=== PATIENT | male | born 1940 | race Caucasian/White ===

== ENCOUNTER 2017-06-20 12:19 | Observation (INO) ==
--- NOTE | 2017-06-20 12:49 | Emergency Department Note ---
Fall HPI - General Chief Complaint: Fall Stated Complaint: left hip pain, fall Time Seen by Provider: 06/20/17 12:35 Source: patient, EMS Mode of arrival: ambulatory - History of Present Illness HPI Narrative: Patient was outside trimming roses in his left hip gave out when he fell with some lava rock. He has an abrasion to his right elbow and a dislocated left hip prosthesis no other injuries. - Related Data Home Medications Medication Instructions Recorded Confirmed Acetaminophen [Acetaminophen Extra 500 mg PO Q6H PRN 10/15/15 06/20/17 Strength] Gabapentin [Neurontin] 300 mg PO QIDP PRN 06/20/17 06/20/17 Previous Rx's Medication Instructions Recorded acetaminophen 120 mg-codeine 12 5 ml PO QID PRN #60 ml 12/28/16 mg/5 mL (5 mL) oral solution simvastatin 20 mg tablet 20 mg PO QPM #90 tab 02/08/17 metoprolol tartrate 25 mg tablet 12.5 mg PO BID #30 tab 02/15/17 metformin ER 500 mg 500 mg PO BID #180 tab 03/03/17 tablet,extended release 24 hr lisinopril 20 1 tab PO Q48 #45 tab 03/22/17 mg-hydrochlorothiazide 12.5 mg tablet lorazepam 1 mg tablet 1 mg PO BID PRN #90 tab 04/15/17 warfarin 5 mg tablet See Label Instructions .ROUTE 05/10/17 .COMPLEX #100 tab Accu-Chek 1 each FS ACHS strip 06/20/17 Allergies Allergy/AdvReac Type Severity Reaction Status Date / Time No Known Drug Allergies Allergy Verified 03/22/17 08:32 Review of Systems All systems ED: reviewed and negative except as stated. Fall PMH - Past Medical History [facility] Narrative: Medical History (Last Updated 04/03/17 @ 12:57 by Sukh Fuller MD) Colon adenomas (Chronic) Metabolic Syndrome X (Chronic) Acute retention of urine (Resolved) Stress incontinence (Chronic) Acquired trigger thumb (Chronic) Acquired trigger finger (Chronic) Urinary Incontinence (Chronic) Cubital tunnel syndrome on right (Resolved) Carpal tunnel syndrome, bilateral (Chronic) Stress incontinence, male (Chronic) Acute reaction to stress (Resolved 05/17/13) Malignant neoplasm of prostate (Chronic) Bilateral plantar fasciitis (Chronic 09/24/14) Osteoarthritis (Chronic) Deformity of toe (Chronic 09/24/14) Lipoma (Chronic 10/16/13) Essential hypertension (Chronic) Dyslipidemia (Chronic) Ventral hernia (Chronic) Gross hematuria (Chronic) Dysmetabolic syndrome X (Chronic) DM w/o complication type II (Chronic) Cough (Resolved 10/05/13) Bradycardia (Chronic 05/23/14) History of bladder cancer (Chronic) First degree atrioventricular block (Chronic 05/23/14) Past Surgical History (Last Reviewed 03/22/17 @ 09:20 by Sukh Fuller MD) History of carpal tunnel surgery of left wrist (Resolved) Status post carpal tunnel release (Resolved) Hx of tonsillectomy (Resolved) Hx of radical prostatectomy (Resolved) Status post bilateral knee replacements (Resolved) S/P bilateral hip replacements (Resolved) Hx of inguinal hernia repair (Resolved) Hx of hernia repair (Resolved 10/16/13) S/P bilateral foot surgery (Resolved) Hx of colonoscopy (Resolved) Status post implantation of artificial urinary sphincter (Resolved) Family History (Last Reviewed 03/22/17 @ 09:20 by Sukh Fuller MD) Mother Malignant neoplasm of breast Father Parkinson's Disease - Social History smoking status: Former smoker Physical Exam Left hip is shortened and externally rotated. Minimal tenderness around the hip joint itself. - General Limitations: no limitations General appearance: alert, in no apparent distress - Head Head exam: atraumatic, normocephalic - Eye Eye exam: Present: normal appearance - ENT ENT exam: normal exam - Neck Neck exam: Present: normal inspection - Chest Chest inspection: Present: normal inspection - Respiratory Respiratory exam: Present: normal lung sounds bilaterally - Cardiovascular Cardiovascular exam: Present: regular rate, normal rhythm, normal heart sounds - Neurological Exam Neurological exam: Present: alert - Psychiatric Psychiatric exam: Present: normal affect, normal mood - Skin Skin exam: Present: warm, dry Course Vital Signs Temperature 98.7 F 06/20/17 12:20 Pulse Rate 77 06/20/17 12:20 Respiratory Rate 18 06/20/17 12:20 Blood Pressure 174/123 06/20/17 12:20 Pulse Oximetry (%) 98 06/20/17 12:20 Temperature 97 F 06/21/17 06:14 Pulse Rate 69 06/21/17 03:10 Respiratory Rate 16 06/21/17 06:14 Blood Pressure 158/66 06/21/17 06:14 Pulse Oximetry (%) 96 06/21/17 06:14 Fall - MDM Narrative Medical decision making narrative: This patient had a 5 mm bleed in his brain which I could not locate when I looked at the film. Patient will be admitted to the hospital by the hospitalist for observation and repeat CT scan in the morning. Anibal Chacko came in and reduce the hip dislocation. - Lab Data Lab results reviewed: Yes I reviewed the patient's lab results. Result diagrams: 06/21/17 03:46 06/21/17 03:46 Lab Results 06/20/17 06/20/17 06/20/17 Range/Units 14:20 14:20 14:20 WBC 8.8 (4.5-11.0) K/mcL RBC 4.22 L (4.50-5.90) M/mcL Hgb 13.8 (13.5-16.5) g/dL Hct 40.8 L (41.0-55.0) % MCV 96.8 (80.0-100.0) fL MCH 32.8 (26.0-34.0) pg MCHC 33.9 (31.0-36.0) g/dL RDW 14.8 H (11.5-14.5) % Plt Count 131 L (140-440) K/mcL MPV 8.6 (7.4-10.4) fL Gran % 88.8 H (38.0-78.0) % Lymph % (Auto) 6.0 L (15.5-49.0) % [place] % (Auto) 4.6 (1.0-12.0) % Eos % (Auto) 0.5 (0.0-7.0) % Baso % (Auto) 0.1 (0.0-2.0) % Gran # 7.8 (1.8-8.0) K/mcL Lymph # (Auto) 0.5 L (1.5-4.8) K/mcL [place] # (Auto) 0.4 (0.1-0.9) K/mcL Eos # (Auto) 0 (0.0-0.7) K/mcL Baso # (Auto) 0 (0.0-0.3) K/mcL PT 24.6 H (11.9-14.5) sec INR 2.1 H (0.9-1.1) Sodium 139 (133-145) mmol/L Potassium 3.6 (3.3-5.1) mmol/L Chloride 102 (96-108) mmol/L Carbon Dioxide 24 (22-30) mmol/L Anion Gap 13.0 (8-16) BUN 13 (8-23) mg/dl Creatinine 0.6 L (0.7-1.2) mg/dl GFR Calculation 98 Glucose 110 H (70-105) mg/dL Calcium 8.4 L (8.6-10.4) mg/dl Total Bilirubin 0.7 (0.0-1.0) mg/dL AST 20 (0-37) U/l ALT 22 (0-40) U/l Alkaline Phosphatase 46 (39-117) U/L Total Protein 6.5 (5.9-8.4) gm/dL Albumin 3.9 (3.2-5.2) gm/dL Globulin 2.6 (2.2-3.7) gm/dL Albumin/Globulin Ratio 1.5 (1.0-2.3) - Radiology Data Radiology results reviewed: Yes I reviewed the patient's radiology results. Disposition Pt seen by BUSINESS CONTINUITY PLANNING DIRECTOR/PA only: No Clinical Impression: Dislocation of internal left hip prosthesis, Brain bleed Disposition: Xfer As Outpt/Obs ([facility]) Condition: Good
[2017-06-20] MEDS ORDERED: HYDROmorphone 2 MG/ML SYRINGE IV PRN ×2 (13:06→16:29)
[2017-06-20] MEDS ORDERED: HYDROmorphone 2 MG/ML SYRINGE ONE (13:15)
[2017-06-20] MEDS ORDERED: KETAMINE 10 MG/ML ML ONE (13:55)
[2017-06-20] MEDS ORDERED: PROPOFOL 200 MG/20 ML VIAL IV ONE (13:55)
[2017-06-20] MEDS ORDERED: MIDAZOLAM 2 MG/2 ML VIAL ONE (13:55)
[2017-06-20 14:48] LABS: Basophils # (Auto) 0 K/mcL (0.0-0.3); Basophils % (Auto) 0.1 % (0.0-2.0); Eosinophils # (Auto) 0 K/mcL (0.0-0.7); Eosinophils % (Auto) 0.5 % (0.0-7.0); Granulocytes % (Auto) 88.8 % (38.0-78.0); Lymphocytes # (Auto) 0.5 K/mcL (1.5-4.8); Mean Cell Volume 96.8 fL (80.0-100.0); Mean Corpuscular HGB Conc 33.9 g/dL (31.0-36.0); Mean Corpuscular Hemoglobin 32.8 pg (26.0-34.0); Monocytes # (Auto) 0.4 K/mcL (0.1-0.9); Monocytes % (Auto) 4.6 % (1.0-12.0); Platelet Count 131 K/mcL (140-440); RBC 4.22 M/mcL (4.50-5.90); Red Cell Distribution Width 14.8 % (11.5-14.5)
[2017-06-20 15:06] LABS: ALT/SGPT 22 U/l (0-40); Albumin 3.9 gm/dL (3.2-5.2); Albumin/Globulin Ratio 1.5 (1.0-2.3); Alkaline Phosphatase 46 U/L (39-117); Blood Urea Nitrogen 13 mg/dl (8-23)
--- NOTE | 2017-06-20 15:24 | Internal Med History&Physical ---
Medical - H&P: HPI Patient information: Note initiated : 06/20/17 at 3:24 pm Patient: Michael Worley a 77 y/o M admitted on for left hip pain, fall. History of present illness: Mr. Worley is a 77 year old man with a history of atrial fibrillation, maintained on Coumadin therapy. Today, he was working in his yard on a slope, and fell when he turns. He landed on his right side and hit his right side of his head. He had immediate hip pain as well. He presented to the emergency room for evaluation, where a left hip dislocation was diagnosed. Orthopedics came in and reduce that under anesthesia. He also underwent head CT, which suggested a tiny area of bleeding. The patient is now admitted for further observation. Otherwise, the patient says he has been feeling well. He denies recent fever chills, headaches or dizziness, new eye or ear symptoms, sore throat or cough, current neck pain or swollen glands, chest pain or palpitations, shortness of breath or wheezing, abdominal pain, nausea or vomiting, diarrhea or constipation , dysuria. He denies any focal weakness or slurred speech or confusion. 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 Dyslipidemia (Chronic) Dysmetabolic syndrome X (Chronic) Essential hypertension (Chronic) First degree atrioventricular block (Chronic 05/23/14) Dr Stephens Gross hematuria (Chronic) 12/2006 History of bladder cancer (Chronic) non-invasive - treated with chemo instillations Lipoma (Chronic 10/16/13) left flank Malignant neoplasm of prostate (Chronic) 1999 - with radiation for recurrence Metabolic Syndrome X (Chronic) Osteoarthritis (Chronic) Stress incontinence (Chronic) Stress incontinence, male (Chronic) with artificial sphincter that's working well Urinary Incontinence (Chronic) post radical prostatectomy Ventral hernia (Chronic) Acute reaction to stress (Resolved 05/17/13) Acute retention of urine (Resolved) Cough (Resolved 10/05/13) Cubital tunnel syndrome on right (Resolved) Surgical History History of carpal tunnel surgery of left wrist (Resolved) Hx of colonoscopy (Resolved) 03/2012 - diverticuli, no polyps. 10/06/16 diverticuli, TA x 2. 5 year follow-up. Hx of hernia repair (Resolved 10/16/13) left flank hernia repaired by Dr Wren Hx of inguinal hernia repair (Resolved) bilateral Hx of radical prostatectomy (Resolved) 1999 Hx of tonsillectomy (Resolved) S/P bilateral foot surgery (Resolved) Dr Chamberlain S/P bilateral hip replacements (Resolved) Dr Meyer Status post bilateral knee replacements (Resolved) Dr Meyer Status post carpal tunnel release (Resolved) left wrist Status post implantation of artificial urinary sphincter (Resolved) 12/17/15 - Dr Valenzuela Medication List acetaminophen 500 mg PO Q6H PRN acetaminophen-codeine 120 mg-12 mg /5 mL (5 mL) 5 mL PO QID PRN gabapentin 600 mg (2 x 300 mg) PO TID 1 month hydrocortisone 2.5% (Proctozone-HC) 1 applic MI TID lisinopril-hydrochlorothiazide 20-12.5 mg 1 tab PO Q48 lorazepam 1 mg PO BID PRN metformin ER 500 mg PO BID metoprolol tartrate 12.5 mg (1/2 x 25 mg) PO BID simvastatin 20 mg PO QPM warfarin Take one tablet 5 days a week only skipping Tuesdays and Fridays Allergies/Adverse Reactions No Known Drug Allergies Allergy Family History Mother Malignant neoplasm of breast? Father Parkinson's Disease; brother had prostate cancer also. Social History Patient is and lives with his . He previously smoked, but quit 50 years ago. He drinks 0-1 beers per day. He does not use drugs. education level: high school; occupational status: retired,occupation: [employer] smoking status: Former smoker Medical - H&P: Meds Home Medications Medication Instructions Recorded Confirmed Type Acetaminophen [Acetaminophen Extra 500 mg PO Q6H PRN 10/15/15 06/20/17 History Strength] acetaminophen 120 mg-codeine 12 5 ml PO QID PRN #60 ml 12/28/16 06/20/17 Rx mg/5 mL (5 mL) oral solution simvastatin 20 mg tablet 20 mg PO QPM #90 tab 02/08/17 06/20/17 Rx metoprolol tartrate 25 mg tablet 12.5 mg PO BID #30 tab 02/15/17 06/20/17 Rx metformin ER 500 mg 500 mg PO BID #180 tab 03/03/17 06/20/17 Rx tablet,extended release 24 hr lisinopril 20 1 tab PO Q48 #45 tab 03/22/17 06/20/17 Rx mg-hydrochlorothiazide 12.5 mg tablet lorazepam 1 mg tablet 1 mg PO BID PRN #90 tab 04/15/17 06/20/17 Rx warfarin 5 mg tablet See Label Instructions .ROUTE 05/10/17 06/20/17 Rx .COMPLEX #100 tab Gabapentin [Neurontin] 300 mg PO QIDP PRN 06/20/17 06/20/17 History Allergies Allergy/AdvReac Type Severity Reaction Status Date / Time No Known Drug Allergies Allergy Verified 03/22/17 08:32 Medical - H&P: Exam - Constitutional Vitals: Temp Pulse Resp BP Pulse Ox 98.3 F 73 18 133/105 96 06/20/17 14:24 06/20/17 15:01 06/20/17 15:01 06/20/17 15:01 06/20/17 15:01 On exam, the patient is sitting up in bed, eating his dinner. He is in no acute distress. Head: Appears normocephalic, atraumatic. Eyes: PERRLA, EOMI, anicteric. Ears: TMs and canals are clear. Pharynx: Is clear. Neck: Is supple, without lymphadenopathy, JVD, thyromegaly, bruits. Cardiac exam: Is regular rate and rhythm with normal S1 and S2, without murmurs , rubs, gallops. Lungs are clear to auscultation, without rales, rhonchi, wheezes. abdomen is obese, but soft and nontender with normal bowel sounds. Extremities: Right lower extremity appears normal. Left lower extremity is in a full leg brace. Neurologic exam: Cranial nerves are grossly intact. Patient is alert and oriented, calm and cooperative. He answers questions appropriately. Motor exam just 5 out of 5 strength throughout, although he cannot do much with his left leg currently. Cerebellar exams shows intact finger to finger and finger to nose exam. No tremors noted. Medical - H&P: Reslt - Labs CBC & Chem 7: 06/20/17 14:20 09/24/17 14:20 Labs: Short CBC 06/20/17 06/20/17 Range/Units 14:20 14:20 WBC 8.8 (4.5-11.0) K/mcL RBC 4.22 L (4.50-5.90) M/mcL Hgb 13.8 (13.5-16.5) g/dL Hct 40.8 L (41.0-55.0) % MCV 96.8 (80.0-100.0) fL MCH 32.8 (26.0-34.0) pg MCHC 33.9 (31.0-36.0) g/dL RDW 14.8 H (11.5-14.5) % Plt Count 131 L (140-440) K/mcL MPV 8.6 (7.4-10.4) fL Gran % 88.8 H (38.0-78.0) % Lymph % (Auto) 6.0 L (15.5-49.0) % [place] % (Auto) 4.6 (1.0-12.0) % Eos % (Auto) 0.5 (0.0-7.0) % Baso % (Auto) 0.1 (0.0-2.0) % Gran # 7.8 (1.8-8.0) K/mcL Lymph # (Auto) 0.5 L (1.5-4.8) K/mcL [place] # (Auto) 0.4 (0.1-0.9) K/mcL Eos # (Auto) 0 (0.0-0.7) K/mcL Baso # (Auto) 0 (0.0-0.3) K/mcL PT 24.6 H (11.9-14.5) sec INR 2.1 H (0.9-1.1) BMP 06/20/17 14:20 Sodium 139 Potassium 3.6 Chloride 102 Carbon Dioxide 24 BUN 13 Creatinine 0.6 L Glucose 110 H Calcium 8.4 L Liver Function 06/20/17 Range/Units 14:20 Total Bilirubin 0.7 (0.0-1.0) mg/dL AST 20 (0-37) U/l ALT 22 (0-40) U/l Alkaline Phosphatase 46 (39-117) U/L Albumin 3.9 (3.2-5.2) gm/dL Head CT: Possible 6 mm hemorrhagic contusion in the right frontal cortex. Suggest observation and short-term follow-up head CT. Also small amount of gas scattered within the right infratemporal fossa, which could be associated with a basilar skull fracture, although no fracture is seen. Mild atrophy and chronic ischemic changes are noted. Hip x-ray: Showed complete dislocation of the left total hip prosthesis. EKG: Shows atrial fib at a rate of 70. Normal axis. Intraventricular conduction delay. No acute ST-T changes noted. Medical - H&P: A/P (1) Acute head trauma Current visit: Yes Status: Acute (2) Hip dislocation, left Current visit: Yes Status: Acute (3) Subdural hematoma, post-traumatic Current visit: Yes Status: Acute (4) Current use of correction anticoagulation Current visit: Yes Status: Chronic (5) Atrial fibrillation Problem details: asymptomatic. Current visit: No Status: Chronic - Narrative A/P Narrative: #1. Neuro. Patient presents after a fall with minor head trauma. CT is suggestive of possible tiny amount of bleeding. Patient is now admitted to observation to be sure this does not progressed, as he is on long-term Coumadin therapy. -I reviewed his case with Dr. Avilez of radiology. We will plan on repeating his head CT around 5 PM, to be sure there has been no progression. Otherwise we will do frequent neuro checks, and if he appears stable, probably discharge in the morning. 2. Cardiac. History of chronic atrial fibrillation. Rate controlled. Patient is therapeutic on Coumadin. Continue to monitor. Continue metoprolol. -Hypertension. Blood pressure initially high, but now appears to be normalizing. 3. Orthopedic. Patient presents with left hip dislocation after fall. This was treated in the emergency room. Pain meds as needed. Orthopedic consultation was done in the ER. Patient will follow up with orthopedics after discharge. 4. CODE STATUS: Full code. 5. DVT prophylaxis: Patient is anticoagulated. 6. Endocrine. Type 2 diabetes. Monitor Accu-Cheks, cover with sliding scale insulin.
--- NOTE | 2017-06-20 16:17 | Cat Scan Report ---
CLINICAL INFORMATION: Trauma on Coumadin COMPARISON: None. TECHNIQUE: 2.5 mm helical slices were obtained in the skull base to vertex. Following reconstruction, axial reformatted images were reviewed at bone and parenchymal windows. FINDINGS: The ventricles, sulci, fissures, and cisterns are symmetrically enlarged, with mild age-related atrophy. There is no subdural hemorrhage or other extra-axial fluid collection or masses appreciated. A subtle 5 mm high attenuation region is seen in the right frontal cortex. This may represent artifact but it could also represent a very tiny subtle hemorrhagic contusion. It measures 60 Hounsfield units in density. Moderate chronic ischemic changes in the cerebral white matter seen as expected. Bone windows show small and some gas scattered within the right infratemporal fossa retropharyngeal soft tissues and the soft tissues overlying the right zygoma. Normally this associated with facial basilar skull fracture no fracture line is identified. IMPRESSION: Possible 6 mm hemorrhagic contusion in the right frontal cortex. Suggest observation and short-term follow-up head CT Small amount of gas scattered within the right infratemporal fossa, preseptal right orbital region nasal region) and right temporal region which may be associated with a basilar skull or facial fracture. Although no fracture is identified. On follow-up CT, now in one hour. We will change angulation to better visualize pathology in this region Mild atrophy and chronic ischemic changes throughout white matter - expected for age. Interpreted and Authenticated by: Cali Avilez 06/20/17
--- NOTE | 2017-06-20 16:19 | XRay Report ---
CLINICAL INFORMATION: Trauma COMPARISON: None. FINDINGS: There is complete dislocation of the left total hip prostheses. The prosthetic femoral head is now superiorly located to the prosthetic acetabulum. No associated fracture.] The right hip remains anatomically aligned. Surgical clips present in the pelvis IMPRESSION: Complete dislocation of left total hip prostheses Interpreted and Authenticated by: Cali Avilez 06/20/17
--- NOTE | 2017-06-20 16:19 | XRay Report ---
CLINICAL INFORMATION: Left total hip prostheses dislocation post reduction COMPARISON: Prereduction pelvic films 06/20/2017 1225 hours. FINDINGS: Left total hip prostheses is now anatomically aligned. No fracture IMPRESSION: Total hip prostheses - now anatomically aligned Interpreted and Authenticated by: Cali Avilez 06/20/17
[2017-06-20] MEDS ORDERED: NALOXONE HCL 0.4 MG/ML VIAL IV PRN (16:29)
[2017-06-20] MEDS ORDERED: MAGNESIUM HYDROXIDE 30 ML ORAL.SUSP PO PRN (16:29)
[2017-06-20] MEDS ORDERED: CALCIUM CARBONATE 500 MG TAB.CHEW CHEWED PRN (16:29)
[2017-06-20] MEDS ORDERED: ACETAMINOPHEN 325 MG TABLET PO PRN (16:29)
[2017-06-20] MEDS ORDERED: ONDANSETRON 4 MG/2 ML VIAL IV PRN (16:29)
[2017-06-20] MEDS ORDERED: GABAPENTIN 300 MG CAPSULE PO PRN (18:16)
[2017-06-20] MEDS ORDERED: ACETAMINOPHEN 500 MG TABLET PO PRN (18:16)
[2017-06-20] MEDS ORDERED: ACETAMINOPHEN W/CODEINE 5 ML ORAL.SOL PO PRN (18:16)
[2017-06-20] MEDS ORDERED: LORazepam 1 MG TABLET PO PRN (18:16)
[2017-06-20] MEDS ORDERED: DEXTROSE 31 GM ORAL.SUSP PO PRN (18:29)
[2017-06-20] MEDS ORDERED: DEXTROSE 50% 50 ML VIAL IV PRN (18:29)
[2017-06-20] MEDS: metFORMIN 500 MG TAB.XL.24H PO SCH (18:44)
--- NOTE | 2017-06-20 20:10 | Cat Scan Report ---
CLINICAL INFORMATION: Possible posttraumatic hemorrhage in the left frontal lobe cortex. COMPARISON: Head CT performed three hours prior - 06/20/2017 1338 hours. TECHNIQUE: 2.5 mm helical slices were obtained in the skull base to vertex. Following reconstruction, axial reformatted images were reviewed at bone and parenchymal windows. FINDINGS: The ventricles, sulci, fissures, and cisterns are symmetrically enlarged compatible with mild atrophy - no subdural hemorrhage or other extra-axial fluid collections appreciated. There is mild chronic ischemic changes in the cerebral white matters - as previously seen. This examination does not show a hemorrhagic contusion in the right frontal cortex. The previous finding should be considered artifact. There is no intracerebral hemorrhage or mass effect. This examination shows no gas within the infratemporal fossa or the extracranial soft tissues described on previous study. No evidence of fracture IMPRESSION: Mild atrophy and chronic ischemic changes in the deep cerebral white matter. There is no evidence of a hemorrhagic contusion in the right frontal lobe. No evidence of fracture or other abnormality. Interpreted and Authenticated by: Cali Avilez 06/20/17
[2017-06-20] MEDS ORDERED: SIMVASTATIN 20 MG TABLET PO SCH (21:00)
[2017-06-20] MEDS: HYDROcodone/APAP 5/325MG TABLET PO PRN (21:10)
[2017-06-20] MEDS: METOPROLOL TARTRATE 25 MG TABLET PO SCH (21:12)
[2017-06-20] MEDS: INSULIN LISPRO 1 UNIT/0.01 ML UNIT SQ SCH (21:13)
[2017-06-20] MEDS: 0.9 % SODIUM CHLORIDE 10 ML SYRINGE IV SCH (21:16)
[2017-06-21] MEDS: HYDROcodone/APAP 5/325MG TABLET PO PRN ×2 (03:18→07:15)
[2017-06-21] MEDS: 0.9 % SODIUM CHLORIDE 10 ML SYRINGE IV SCH (06:05)
[2017-06-21 07:01] LABS: Basophils # (Auto) 0 K/mcL (0.0-0.3); Basophils % (Auto) 0.3 % (0.0-2.0); Eosinophils # (Auto) 0.1 K/mcL (0.0-0.7); Granulocytes % (Auto) 78.8 % (38.0-78.0); Lymphocytes % (Auto) 13.7 % (15.5-49.0); Mean Cell Volume 96.7 fL (80.0-100.0); Mean Corpuscular HGB Conc 33.7 g/dL (31.0-36.0); Mean Corpuscular Hemoglobin 32.6 pg (26.0-34.0); Monocytes # (Auto) 0.5 K/mcL (0.1-0.9); Monocytes % (Auto) 6.2 % (1.0-12.0); Platelet Count 156 K/mcL (140-440); RBC 4.47 M/mcL (4.50-5.90); Red Cell Distribution Width 14.5 % (11.5-14.5)
[2017-06-21] MEDS: INSULIN LISPRO 1 UNIT/0.01 ML UNIT SQ SCH (07:11)
[2017-06-21 07:27] LABS: ALT/SGPT 22 U/l (0-40); Albumin 3.9 gm/dL (3.2-5.2); Albumin/Globulin Ratio 1.3 (1.0-2.3); Alkaline Phosphatase 45 U/L (39-117); Bilirubin,Direct < 0.2 mg/dL (0.0-0.3); Blood Urea Nitrogen 12 mg/dl (8-23); Gamma Glutamyl Transpeptidase 30 U/L (8-61); Magnesium 1.8 mg/dL (1.6-2.5); Uric Acid 5.2 mg/dL (2.5-8.0)
--- NOTE | 2017-06-21 08:24 | Discharge Summary ---
Medical - DS: Prov Patient information: Note initiated : 06/21/17 at 8:20 am Service Date, if different from initiated Date: [] Patient: Michael Worley 77 y/o M admitted on 06/20/17 for left hip pain, fall. Chief Complaint: [] Date of admission: 06/20/17 16:12 Discharge date: 06/21/17 Primary care physician: Sukh Fuller Admitting clinician: Neida Robison Consults: Telephone consult with Dr. Green of neurology from [facility] in [place] Attending physician on discharge: Neida Robison Medical - DS: Meds - Discharge Medications Active and Home Medications: Discharge medications: Unchanged from admission: Acetaminophen [Acetaminophen Extra Strength] 500 mg PO Q6H PRN 10/15/15 [ History Confirmed 06/20/17 Last Taken 06/20/17] acetaminophen 120 mg-codeine 12 mg/5 mL (5 mL) oral solution 5 ml PO QID PRN # 60 ml 12/28/16 [Rx Confirmed 06/20/17 Last Taken 06/20/17 11:00] simvastatin 20 mg tablet 20 mg PO QPM #90 tab 02/08/17 [Rx Confirmed 06/20/17 Last Taken 06/19/17 18:00] metoprolol tartrate 25 mg tablet 12.5 mg PO BID #30 tab 02/15/17 [Rx Confirmed 06/20/17 Last Taken 06/20/17 07:00] metformin ER 500 mg tablet,extended release 24 hr 500 mg PO BID #180 tab [Rx Confirmed 06/20/17 Last Taken 06/20/17 07:00] lisinopril 20 mg-hydrochlorothiazide 12.5 mg tablet 1 tab PO Q48 #45 tab [Rx Confirmed 06/20/17 Last Taken 06/19/17 07:00] lorazepam 1 mg tablet 1 mg PO BID PRN #90 tab 04/15/17 [Rx Confirmed 06/20/17 Last Taken 05/21/17] warfarin 5 mg tablet See Label Instructions .ROUTE .COMPLEX #100 tab 05/10/17 [ Rx Confirmed 06/20/17 Last Taken 06/19/17 18:00] Accu-Chek 1 each FS ACHS strip 09/24/17 [Rx Last Taken Unknown] Gabapentin [Neurontin] 300 mg PO QIDP PRN 06/20/17 [History Confirmed 06/20/17 Last Taken 06/20/17 07:00] Medical - DS: Hosp Hospital course: Mr. Worley is a 77 year old M June 20, 2017: History of present illness: Mr. Worley is a 77 year old man with a history of atrial fibrillation, maintained on Coumadin therapy. Today, he was working in his yard on a slope, and fell when he turns. He landed on his right side and hit his right side of his head. He had immediate hip pain as well. He presented to the emergency room for evaluation, where a left hip dislocation was diagnosed. Orthopedics came in and reduce that under anesthesia. He also underwent head CT, which suggested a tiny area of bleeding. The patient is now admitted for further observation. Otherwise, the patient says he has been feeling well. He denies recent fever chills, headaches or dizziness, new eye or ear symptoms, sore throat or cough, current neck pain or swollen glands, chest pain or palpitations, shortness of breath or wheezing, abdominal pain, nausea or vomiting, diarrhea or constipation , dysuria. He denies any focal weakness or slurred speech or confusion. June 21: The patient did fine overnight. He has not had any change in neurologic symptoms. He denies headaches or dizziness, blurred vision, slurred speech or facial droop, focal weakness or numbness. He feels ready to return home today. Follow-up head CT last night did not show any signs of bleeding. On exam, the patient is awake and alert, watching TV. Neck is supple without lymphadenopathy or JVD. Cardiac exam shows regular rate and rhythm. Lungs are clear to auscultation. Abdomen is soft and nontender. Right lower extremity is normal. Left lower extremity still held in a full leg brace. neurologic exam: Patient is alert and oriented, calm and cooperative. Cranial nerves are grossly intact. Motor exam is grossly symmetric. Assessment and plan #1. Neuro. Patient presents after a fall with minor head trauma. He had no changes in his neurologic status overnight. Follow-up head CT shows mild atrophy and chronic ischemic changes, but no evidence of hemorrhage or hemorrhagic contusion. Fractures or other abnormalities. Patient is stable for discharge this morning. He will continue with his usual medications including Coumadin. 2. Cardiac. History of chronic atrial fibrillation. Rate controlled. Patient is therapeutic on Coumadin. Continue to monitor. Continue metoprolol. -Hypertension. Blood pressure initially high, but now normalizing. 3. Orthopedic. Patient presents with left hip dislocation after fall. This was treated in the emergency room. Pain meds as needed. Orthopedic consultation was done in the ER. Patient will follow up with orthopedics, Dr. Rodriguez, after discharge. He continues in a leg brace. I assume he is to be nonweightbearing. He says he has crutches at home. His plan is to sit in the back seat while his drives him home, and then she can bring the crutches to him once they get there. 4. CODE STATUS: Full code. 5. DVT prophylaxis: Patient is anticoagulated. 6. Endocrine. Type 2 diabetes. Continue usual treatment. Discharge diagnosis: Left hip dislocation. Chronic anticoagulation with fall and head trauma. - Time Spent with Patient Total time spent providing and/or coordinating discharge services: Greater than 30 minutes Medical - DS: Exam - Constitutional Vitals: Vital Signs Temp Pulse Resp BP BP Pulse Ox 06/21/17 06:14 97 F 16 158/66 96 06/21/17 03:10 98.0 F 69 16 135/98 94 06/20/17 23:12 98.4 F 69 20 128/86 96 06/20/17 19:21 98.4 F 85 20 131/86 95 06/20/17 16:29 93 Intake and Output 06/20/17 06/21/17 06/21/17 21:59 05:59 13:59 Intake Total 240 / 240 75 / 75 Output Total 600 / 600 1000 / 1000 Balance -360 / -360 -925 / -925 Intake: Oral 240 / 240 75 / 75 Output: Void Amount 600 / 600 1000 / 1000 Other: Meal Dinner Percent of Meal Consumed 75% Feeding Ability Independent # Voids 1 1 Medical - DS: Data Labs on day of discharge: Labs from last 24 hours 06/21/17 06/21/17 06/21/17 03:46 03:46 03:46 WBC 7.4 RBC 4.47 L Hgb 14.6 Hct 43.3 MCV 96.7 MCH 32.6 MCHC 33.7 RDW 14.5 Plt Count 156 MPV 9.0 Gran % 78.8 H Lymph % (Auto) 13.7 L [place] % (Auto) 6.2 Eos % (Auto) 1.0 Baso % (Auto) 0.3 Gran # 5.8 Lymph # (Auto) 1.0 L [place] # (Auto) 0.5 Eos # (Auto) 0.1 Baso # (Auto) 0 PT 22.3 H INR 1.9 H Sodium 139 Potassium 3.9 Chloride 101 Carbon Dioxide 24 Anion Gap 14.0 BUN 12 Creatinine 0.6 L GFR Calculation 98 Glucose 99 Uric Acid 5.2 Calcium 8.7 Phosphorus 2.6 L Magnesium 1.8 Total Bilirubin 1.1 H Direct Bilirubin < 0.2 GGT 30 AST 21 ALT 22 Alkaline Phosphatase 45 Lactate Dehydrogenase 213 Total Protein 6.8 Albumin 3.9 Globulin 2.9 Albumin/Globulin Ratio 1.3 Triglycerides 88 June 20, 2017: Head CT, done at 1700: Shows mild atrophy and chronic ischemic changes in the deep white matter. No evidence of a hemorrhagic contusion. No evidence of fracture or other abnormality. Head CT done at 13:36: Possible 6 mm hemorrhagic contusion in the right frontal cortex. Suggest observation and short-term follow-up head CT. Also small amount of gas scattered within the right infratemporal fossa, which could be associated with a basilar skull fracture, although no fracture is seen. Mild atrophy and chronic ischemic changes are noted. Hip x-ray: Showed complete dislocation of the left total hip prosthesis. EKG: Shows atrial fib at a rate of 70. Normal axis. Intraventricular conduction delay. No acute ST-T changes noted. Medical - DS: A/P - Patient/Caregiver Discharge Instructions Activity: increase activity as tolerated, other (Contact Dr. Rodriguez's office today for further instructions.) Diet: Consistent Carbohydrate Additional Instructions: 1. Head injury. Your follow-up CAT scan did not show any bleeding in the brain. Please have friends and family monitor you, for any changes in behavior, personality, confusion, etc. If these things develop, please return to the emergency room. #2. Please contact Dr. Rodriguez of orthopedics. I believe he should stay nonweightbearing on her left leg for now, and use crutches. Please ask Dr. Rodriguez' s office for further advice. 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 Qualifiers: Atrial fibrillation type: chronic Qualified Code(s): I48.2 - Chronic atrial fibrillation - Follow up Plan Follow up with: Sukh Fuller MD [Primary Care Provider] - Disposition: Home, Self-Care Prognosis: Good Rehab Potential: Good Overall status at discharge: patient is progressing back to baseline Medical - DS: Qual - VTE Deep Vein Thrombosis/Pulmonary Embolism Present on Admission: No
[2017-06-21] MEDS: metFORMIN 500 MG TAB.XL.24H PO SCH (08:36)
[2017-06-21] MEDS: METOPROLOL TARTRATE 25 MG TABLET PO SCH (08:36)
--- NOTE | 2017-06-21 11:03 | Consultation ---
DATE OF CONSULTATION: 06/20/2017 CHIEF COMPLAINT: Left hip dislocation. DISCHARGE DIAGNOSIS: Left hip dislocation with the addition of successful closed reduction under sedation. HISTORY OF PRESENT ILLNESS: The patient earlier today was out trimming roses in his garden area when he ended up slipping on some lava rock. His left hip then gave out. He was taken via EMS to [facility] Emergency Department and was evaluated thereafter. The patient states that he did bump his head when he went down and scraped up his right elbow, but otherwise denied a 10-point review of systems. He has a pretty remarkable past medical history including chronic colon adenomas, metabolic syndrome, urinary retention, stress incontinence, trigger fingers, cubital tunnel and carpal tunnel syndromes, BPH, osteoarthritis, lipomas, hypertension, dyslipidemia, and atrial fibrillation. MEDICATIONS: 1. Warfarin 5 mg daily. 2. Lorazepam. 3. Lisinopril. 4. Metformin. 5. Simvastatin. 6. Tylenol with Codeine. 7. Topical hydrocortisone cream. DRUG ALLERGIES: NKDA. SOCIAL HISTORY: He is . He was a former smoker. PHYSCIAL EXAMINATION: VITAL SIGNS: Temperature 98.7, pulse 77, respirations 16, blood pressure 142/104, pulse ox 98% on room air. GENERAL: Patient is awake, alert and oriented x3, in mild musculoskeletal distress but lying comfortably on exam table with a slightly externally rotated left leg. HEENT: Head normocephalic. NECK: Supple. CHEST: Clear to auscultation. No lesions, rhonchi or rales. CARDIOVASCULAR: NSR. No gallops, rubs, or murmurs. ABDOMEN: Soft, nontender. No gross organomegaly. No guarding, rigidity, or rebound tenderness. MUSCULOSKELETAL: As mentioned previously, left hip slightly externally rotated in comparison with the right. He is generally tender throughout the hip girdle. He had grossly intact neurologic function of the lower extremity including dorsiflexion and plantar flexion. EHLs were normal to light touch. Neurosensory exam: No calf pain. IMAGING STUDIES: Radiographs previously taken by the ED demonstrate a posterior dislocated left total hip arthroplasty with no accompanying periprosthetic fractures, tumors, or other lytic changes. PROCEDURAL NOTE: With the anesthesia overseeing sedation, Jose Barnhart CRNA was able to provide conscious sedation for the patient. When he was appropriately sedated, a reduction maneuver was completed with me straddling the patient and with nursing staff using counter-traction on the pelvis. A click reduction was obtained without much difficulty and the patient was stable and woke up without complications from the sedation. ASSESSMENT: Left Periprosthetic hip dislocation with closed reduction under sedation. TREATMENT PLAN: Patient was placed in a straight knee immobilizer and will remain in this over the next 6 weeks likely. He is to follow up with Dr. Meyer, his orthopaedic surgeon, in 7-14 days for followup and further treatment recommendations. BAP:marylou Job ID: [id number] Doc ID: [id number] Obinna PARISI
[2017-06-22] MEDS ORDERED: HYDROCHLOROTHIAZIDE 12.5 MG CAPSULE PO SCH (09:00)
[2017-06-22] MEDS ORDERED: LISINOPRIL 20 MG TABLET PO SCH (09:00)
== END 2017-06-21 10:25 | disposition home or self-care (01) ==
LOC: ED 12:19 → MEDSUR 12:19
PROVIDERS: ADMIT Internal Medicine; ATTEND Internal Medicine

== ENCOUNTER 2023-02-05 08:24 | Inpatient (IN) ==
[2023-02-01 18:43] LABS: Basophils # (Auto) 0.02 K/mcL (0.00-0.30); Basophils % (Auto) 0.4 % (0.0-2.0); Eosinophils # (Auto) 0.07 K/mcL (0.00-0.70); Eosinophils % (Auto) 1.4 % (0.0-7.0); Hemoglobin 12.5 g/dL (13.7-17.5); INR 1.9 (0.9-1.1); Lymphocytes # (Auto) 1.09 K/mcL (1.50-4.80); Lymphocytes % (Auto) 22.3 % (15.5-49.0); Mean Cell Volume 98.3 fL (80.0-100.0); Mean Corpuscular HGB Conc 31.3 g/dL (31.0-36.0); Mean Platelet Volume 10.5 fL (8.8-12.5); Monocytes # (Auto) 0.37 K/mcL (0.10-0.90); Monocytes % (Auto) 7.6 % (1.0-12.0); Neutrophils % (Auto) 68.1 % (38.0-78.0); Partial Thromboplastin Time 35.4 sec (20.0-37.0); Platelet Count 156 K/mcL (140-440); Prothrombin Time 22.1 sec (11.9-14.5); RBC 4.07 M/mcL (4.63-6.08); Red Cell Distribution Width 14.3 % (11.5-14.5); WBC 4.9 K/mcL (4.5-11.0)
[2023-02-01 18:44] LABS: Appearance,Urine CLEAR (Clear); Bilirubin,Urine Negative (Negative); Color,Urine YELLOW; Culture Indicated,Urine No; Glucose,Urine (UA) Negative (Negative); Ketones,Urine Negative (Negative); Leukocyte Esterase,Urine Negative /uL (Negative); Nitrate,Urine Negative (Negative); Protein,Urine Negative (Negative); Specific Gravity,Urine 1.011 (1.000-1.035); Urine Blood Negative (Negative); Urobilinogen,Urine Negative
[2023-02-01 19:00] LABS: Estimated Average Glucose(eAG) 105 mg/dL; Hemoglobin A1C 5.3 % Hgb (4.0-6.0)
[2023-02-01 20:06] LABS: Blood Urea Nitrogen 16 mg/dL (8-23); Calcium 9.4 mg/dL (8.6-10.4); Carbon Dioxide 27 mmol/L (22-30); Chloride 101 mmol/L (96-108); Glomerular Filtration Rate 89; Glucose 83 mg/dL (70-105)
--- NOTE | 2023-02-03 07:03 | EKG ---
[facility] Test Date: 2023-02-01 Pat Name: Michael Worley Department: RT Room: Gender: Male Lead Refiner: : 1940 Requested By: Jose Barnhart Order Number: [id number] Reading MD: Cali Schulz M.D. Measurements Intervals [place] Rate: 65 P: 51 W[place]: 195 QRS: -74 QRSD: 208 T: 83 QT: 491 QTc: 512 Interpretive Statements A-V dual-paced complexes w/ some inhibition No further analysis attempted due to paced rhythm Electronically Signed On 02-03-2023 7:02:59 PDT by Cali Schulz M.D. /store/[email or web address]/[id number]
[~2023-02-05 08:24] MED LIST: 0.9 % SODIUM CHLORIDE 9 ML, KETOROLAC 30 MG, ROPIVACAINE HCL/PF 49.5 ML, EPINEPHrine 0.... IJ SCH; ACETAMINOPHEN 500 MG TABLET PO SCH; CELECOXIB 200 MG CAPSULE PO SCH; PREGABALIN 75 MG CAPSULE PO SCH; ceFAZolin 2 GM in DEXTROSE 5% IN WATER 50 ML IV SCH; oxyCODONE 10 MG TAB.ER.12H PO SCH
[2023-02-05] MEDS ORDERED: SCOPOLAMINE 1 PATCH PATCH TOPICAL PRN (08:30)
[2023-02-05] MEDS ORDERED: IPRATROPIUM/ALBUTEROL 3 ML AMPUL.NEB NEB PRN ×2 (08:30→13:15)
[2023-02-05] MEDS ORDERED: ROPIVACAINE HCL/PF 20 ML VIAL IJ ONE (12:12)
[2023-02-05] MEDS ORDERED: PHENYLephrine 1 MG/10 ML SYRINGE (ANEST) ONE (12:12)
[2023-02-05] MEDS ORDERED: ROCURONIUM 10 MG/ML ML IV ONE (12:12)
[2023-02-05] MEDS ORDERED: PROPOFOL 200 MG/20 ML VIAL IV ONE (12:12)
[2023-02-05] MEDS ORDERED: TRANEXAMIC ACID 1,000 MG/10 ML VIAL ONE (12:12)
[2023-02-05] MEDS ORDERED: SUGAMMADEX SODIUM 200 MG/2 ML VIAL IV ONE (12:12)
[2023-02-05] MEDS ORDERED: fentaNYL 100 MCG/2 ML VIAL IV ONE (12:12)
--- NOTE | 2023-02-05 12:44 | Discharge Plan ---
Discharge Instructions - GUILLERMINA Patient Instructions Total Hip Protocol: Follow activity instructions as provided by Physical Therapy. Additional Dressing Instructions: Leave Zip line closure patch intact until followup --May shower at anytime. Discharge Plan Patient/Caregiver Discharge Instructions Activity: ambulate only with your walker and as per physical therapy Diet: Regular Diet Prescriptions: New hydrocodone-acetaminophen 10-325 mg tablet 1 - 2 tab PO Q4H PRN (Reason: pain) Qty: 75 0RF aspirin [Ecotrin Low Strength] 81 mg tablet,delayed release (DR/EC) 81 mg PO BID Qty: 60 0RF docusate sodium 100 mg capsule 100 mg PO BID Qty: 60 0RF No Action (DME) Supra Malleolar Bilat braces/ Iliana Braces See Rx Instructions .Route .MEDSUPPLY Qty: 1 0RF Rx Instructions: As directed sotalol 80 mg tablet 120 mg PO BID lisinopril 10 mg tablet 10 mg PO QDAY Qty: 90 3RF metformin 500 mg tablet extended release 24 hr 500 mg PO QDAY Qty: 90 3RF simvastatin 20 mg tablet 20 mg PO QPM Qty: 90 3RF trazodone 50 mg tablet 25 mg PO QHS Qty: 45 3RF sertraline 50 mg tablet 50 mg PO QDAY Qty: 90 3RF metoprolol succinate 25 mg tablet extended release 24 hr 25 mg PO QDAY Qty: 90 3RF Xarelto 20 mg tablet 20 mg PO QDAY Qty: 90 3RF Rx Instructions: must administer with evening meal hydrocodone-acetaminophen 5-325 mg tablet 1 tab PO BID PRN (Reason: pain) Qty: 56 0RF multivitamin Tablet 1 tab PO QDAY torsemide 20 mg tablet 20 mg PO QDAY Qty: 90 3RF (DME) diabetic shoes See Rx Instructions .Route .MEDSUPPLY Qty: 2 0RF Rx Instructions: Use diabetic shoes daily potassium chloride 10 mEq capsule, extended release 10 meq PO QDAY Qty: 90 3RF acetaminophen 500 mg tablet 1,000 mg PO Q6H PRN (Reason: Pain) ascorbic acid (vitamin C) 500 mg Capsule 500 mg PO BID clonazepam 0.5 mg tablet 0.5 - 1 mg PO TID Other Ambulatory Orders: Physical Therapy DC - GUILLERMINA (Routine) Location: None Selected Ordered By: Obinna Chacko Toilet Riser Discharge Order (ONCE) Location: None Selected Ordered By: Obinna Chcako Walker (ONCE) Location: None Selected Ordered By: Obinna Chacko Follow Up Plan Follow up with: Obinna Chacko PA-C [Physician Elevator Conductor] - Patient Disposition: Home, Self-Care Prognosis: Good Rehab Potential: Good I certify that the patient requires SNF services: No Overall status at discharge: patient is progressing back to baseline Discharge Orders: Discharge Order (Routine); Ordered 02/06/23 Ordered By: Obinna Chacko
[2023-02-05] MEDS ORDERED: HYDROmorphone 0.5 MG/0.5 ML SYRINGE IV PRN (13:15)
[2023-02-05] MEDS ORDERED: ACETAMINOPHEN 1,000 MG/100 ML BAG IV ONE (13:15)
[2023-02-05] MEDS ORDERED: fentaNYL 100 MCG/2 ML VIAL IV PRN (13:15)
[2023-02-05] MEDS ORDERED: NALOXONE HCL 0.4 MG/ML VIAL IV PRN (13:15)
[2023-02-05] MEDS ORDERED: ACETAMINOPHEN 500 MG TABLET PO PRN (13:33)
[2023-02-05] MEDS ORDERED: HYDROcodone/APAP 5/325MG TABLET PO PRN (13:52)
[2023-02-05] MEDS ORDERED: FLEETS ADULT ENEMA PR PRN (14:00)
[2023-02-05] MEDS ORDERED: TEMAZEPAM 15 MG CAPSULE PO PRN (14:00)
[2023-02-05] MEDS ORDERED: ACETAMINOPHEN 325 MG TABLET PO PRN (14:00)
[2023-02-05] MEDS ORDERED: MAGNESIUM HYDROXIDE 30 ML ORAL.SUSP PO PRN (14:00)
[2023-02-05] MEDS ORDERED: HYDROcodone/APAP 10/325MG TABLET PO PRN (14:00)
[2023-02-05] MEDS ORDERED: POLYETHYLENE GLYCOL 3350 17 GM PACKET PO PRN (14:00)
[2023-02-05] MEDS ORDERED: ONDANSETRON 4 MG/2 ML VIAL IV PRN ×2 (14:00)
[2023-02-05] MEDS ORDERED: HYDROmorphone 1 MG/ML SYRINGE IV PRN (14:00)
[2023-02-05] MEDS ORDERED: BENZOCAINE/MENTHOL 1 LOZENGE PO PRN (14:00)
[2023-02-05] MEDS ORDERED: TRANEXAMIC ACID 1,000 MG/10 ML VIAL IV ONE ×2 (14:00→14:21)
[2023-02-05] MEDS ORDERED: BISACODYL 10 MG SUPP.RECT PR PRN (14:00)
--- NOTE | 2023-02-05 14:04 | Brief Operative Note ---
Brief Operative Note Date of procedure: 02/05/23 Pre-op diagnosis: left hip instability Post-op diagnosis: same Procedure: left hip revision one component Grafts/Implants: Yes Anesthesia: GETA Findings: posterior dislocation Complications: none Surgeon: Haider Matos Lithographic Etcher: Obinna Chacko Estimated blood loss (cc): 75 Specimens Removed/Pathology: none sent Condition: stable Disposition: PACU
--- NOTE | 2023-02-05 14:14 | Operative Note ---
DATE OF OPERATION: 02/05/2023 PREOPERATIVE DIAGNOSES: An 82-year-old male who has had multiple dislocations with a total hip on the left side with Dr. Meyer as surgeon. He has done a revision on this side before, but it continues to dislocate over three or four times over the last couple of years and is unable to trust the hip. POSTOPERATIVE DIAGNOSES: An 82-year-old male who has had multiple dislocations with a total hip on the left side with Dr. Meyer as surgeon. He has done a revision on this side before, but it continues to dislocate over three or four times over the last couple of years and is unable to trust the hip. PROCEDURE: Left total hip arthroplasty revision of one component, the femoral head, with excision of impinging lesions, both anterior spur and capsule anteriorly. SURGEON: Haider Matos M.D. CARPET INSTALLER HELPER: Obinna Chacko PA-C. The assistance of the RONNA was required for the safe and efficient completion of the entire case. The expertise and technical skill of this provider was required throughout the case. The PA assisted with preoperative coordination, intraoperative retraction, wound closure, dressing and splint application, as well as postoperative documentation and care coordination. COMPLICATIONS: None. ESTIMATED BLOOD LOSS: About 75 mL. No blood products were given. IMPLANTS: 36 mm Frye and Nephew femoral head with a +12 neck length and it was made of Oxinium. DISPOSITION: PACU. DESCRIPTION OF PROCEDURE: The patient was brought to the operating room, put to sleep with general LMA anesthesia. Once asleep, the patient had the left hip sterilely prepped and draped in a right lateral position. Preoperative antibiotics and tranexamic acid were confirmed to be given. We then made an incision through his prior scar, identified the fascial layer and then placed the Charnley retractor. We exposed the posterior capsule and it showed torn signs of capsular tear and dislocations chronically superior posteriorly. At this point, we then released the capsule. We dislocated the hip, which was able to be done at about 60 degrees of internal rotation. It appeared to be secondary to impingement anteriorly. At this point, we placed a punch and removed the femoral head, which was made of Oxinium with a +8 neck length. We made a pocket for the femoral neck superior anteriorly and subluxed the hip anteriorly. We inspected the cuff. It appeared to be very stable at that point. We were then able to release more of the capsule and found a big spur anteriorly on the intertrochanteric line. This measured about the size of 1.5 x 1 x 3 or 4 cm in thickness. This was excised using an osteotome. Once this was removed and the capsular layer anteriorly was removed, we rechecked the patient's motion. This seemed to pop out. It was unable to be dislocated with a +12 neck length. With this, we irrigated thoroughly, placed an Oxinium femoral head with a +12 neck length onto the stem and the stem was very secure. It was reduced and we retested the range of motion. We had greater than 80 degrees without impinging and without dislocation. With this finding, we irrigated thoroughly. We repaired the capsular layer posteriorly with #1 Ethibond. The fascial layer was closed with #1 Stratafix and the skin was closed with Stratafix and adhesive closure. The patient tolerated this well. There were no complications. Blood loss was about 75 mL. RBH:carlos eduardo Job ID: [id number] Doc ID: [id number] Haider Matos MD
[2023-02-05] MEDS: 0.9 % SODIUM CHLORIDE 10 ML SYRINGE IV SCH ×2 (14:44→21:08)
[2023-02-05] MEDS: 0.45 % SODIUM CHLORIDE 1,000 ML IV SCH (14:49)
--- NOTE | 2023-02-05 14:49 | XRay Report ---
CLINICAL INFORMATION: Post-Op Total Hip COMPARISON: 05/08/2019 and 09/09/2022. FINDINGS: Bilateral hip prostheses are in anatomic alignment. No osseous abnormality. Moderate L4-5 L5-S1 degenerative disc disease appreciated IMPRESSION: Bilateral hip prostheses in anatomic alignment. Interpreted and Authenticated by: Cali Avilez 02/05/23
[2023-02-05] MEDS: clonazePAM 0.5 MG TABLET PO SCH ×2 (15:55→21:06)
[2023-02-05] MEDS: INSULIN LISPRO 1 UNIT/0.01 ML UNIT SQ SCH ×2 (17:16→21:05)
[2023-02-05] MEDS ORDERED: SIMVASTATIN 20 MG TABLET PO SCH (21:00)
[2023-02-05] MEDS ORDERED: ASPIRIN 81 MG TAB.CHEW CHEWED SCH (21:00)
[2023-02-05] MEDS ORDERED: SENNOSIDES 1 TABLET PO SCH (21:00)
[2023-02-05] MEDS ORDERED: traZODone HCL 50 MG TABLET PO SCH (21:00)
[2023-02-05] MEDS: ceFAZolin 1 GM VIAL IV SCH (21:04)
[2023-02-05] MEDS: DOCUSATE SODIUM 100 MG CAPSULE PO SCH (21:07)
[2023-02-05] MEDS: ASCORBIC ACID 500 MG TABLET PO SCH (21:07)
[2023-02-05] MEDS: SOTALOL 80 MG TABLET PO SCH (21:07)
[2023-02-06] MEDS: 0.45 % SODIUM CHLORIDE 1,000 ML IV SCH ×2 (01:11→10:36)
[2023-02-06] MEDS: ceFAZolin 1 GM VIAL IV SCH (04:14)
[2023-02-06] MEDS: 0.9 % SODIUM CHLORIDE 10 ML SYRINGE IV SCH (04:15)
[2023-02-06] MEDS ORDERED: clonazePAM 0.5 MG TABLET PO ONE (04:50)
[2023-02-06] MEDS ORDERED: POTASSIUM CHLORIDE 10 MEQ TABLET PO SCH (08:00)
[2023-02-06] MEDS: INSULIN LISPRO 1 UNIT/0.01 ML UNIT SQ SCH ×2 (08:06→11:45)
[2023-02-06] MEDS ORDERED: METOPROLOL SUCCINATE 25 MG TAB.XL.24H PO SCH (09:00)
[2023-02-06] MEDS ORDERED: SERTRALINE 50 MG TABLET PO SCH (09:00)
[2023-02-06] MEDS ORDERED: LISINOPRIL 10 MG TABLET PO SCH (09:00)
[2023-02-06] MEDS ORDERED: RIVAROXABAN 20 MG TABLET PO SCH (09:00)
[2023-02-06] MEDS ORDERED: MULTIVIT,THER IRON,CA,FA & MIN 1 TABLET PO SCH (09:00)
[2023-02-06] MEDS ORDERED: metFORMIN 500 MG TAB.XL.24H PO SCH (09:00)
[2023-02-06] MEDS ORDERED: TORSEMIDE 20 MG TABLET PO SCH (09:00)
[2023-02-06] MEDS: DOCUSATE SODIUM 100 MG CAPSULE PO SCH (09:02)
[2023-02-06] MEDS: clonazePAM 0.5 MG TABLET PO SCH (09:02)
[2023-02-06] MEDS: SOTALOL 80 MG TABLET PO SCH (09:02)
[2023-02-06] MEDS: ASCORBIC ACID 500 MG TABLET PO SCH (09:03)
--- NOTE | 2023-02-06 09:50 | Orthopedic Progress Note ---
SUBJECTIVE Subjective Patient information: Note initiated : 02/06/23 at 9:46 am Service Date, if different from initiated Date: [] Patient: Michael Worley 82 y/o M admitted on 02/05/23 for Left Posterior BRITTNEY Total Hip Arthroplasty -. Chief Complaint: [none] Principal diagnosis: left alayna revision Constitutional Vitals: Vital Signs Temp Pulse Resp BP Pulse Ox O2 Del Method 97.7 F 65 16 124/76 100 Room Air 02/06/23 07:01 02/06/23 07:01 02/06/23 05:03 02/06/23 07:01 02/06/23 07:01 02/06/23 07:01 Period Temp Pulse Resp BP Sys/Sheehan Pulse Ox O2 Del Method O2 Flow Rate Last 24 Hr 97.3 F-97.7 F 58-68 8-19 84-134/60-94 94-100 CPAP-Room Air Intake and Output 02/05/23 02/06/23 02/06/23 19:59 03:59 11:59 Intake Total 1010 1300 400 Output Total 225 600 300 Balance 785 700 100 Weight 210 lb 6.4 oz Intake & Output: Intake & Output 02/05/23 02/06/23 02/06/23 19:59 03:59 11:59 Intake Total 1010 1300 400 Output Total 225 600 300 Balance 785 700 100 Weight 210 lb 6.4 oz Intake: IV 50 1000 Sodium Chloride 0.45% 1,000 ml 1000 @ 100 mls/hr IV .Q10H GIANA Rx#: [id number] Ancef 2 gm In Dextrose 5% in 50 Water 50 ml @ 100 mls/hr IV PREOP GIANA Rx#:[id number] Oral 960 300 400 Output: Void Amount 225 600 300 Other: Meal Dinner Breakfast Percent of Meal Consumed 100% Feeding Ability Independent Independent Urine Appearance Clear Clear Clear Urine Color Yellow Dark Yellow Yellow Urine Odor Normal Normal General appearance: cooperative and no acute distress Expanded Lower Extremity Exam Hip exam: Present swelling and tenderness Upper Leg exam: Present normal inspection OBJ DATA Labs 02/06/23 05:20 02/01/23 13:58 Labs: Abnormal Lab Results 02/06/23 05:20 Hct 38.7 L Meds: Medications Acetaminophen (Acetaminophen 500 Mg Tablet) 1,000 mg PO Q6HP PRN; Protocol PRN Reason: Pain Hydrocodone Bitart/Acetaminophen (Hydrocodone/Apap 5/325mg Tablet) 1 tab PO BIDP PRN PRN Reason: Pain Hydrocodone Bitart/Acetaminophen (Hydrocodone/Apap 10/325mg Tablet) 1 - 2 tab PO Q4HP PRN; Protocol PRN Reason: Per Pain Protocol Last Admin: 02/05/23 18:31 Dose: 1 tab Ascorbic Acid (Ascorbic Acid 500 Mg Tablet) 500 mg PO BID [facility] Last Admin: 02/06/23 09:03 Dose: 500 mg Bisacodyl (Bisacodyl 10 Mg Supp.Rect) 10 mg [place] Q2-3DAYS PRN PRN Reason: Constipation Clonazepam (Clonazepam 0.5 Mg Tablet) 0.5 - 1 mg PO TID [facility] Last Admin: 02/06/23 09:02 Dose: 0.5 mg Diagnostic Test (Pha) (Accu-Chek 1 Each Strip) 1 each FS [facility] Last Admin: 02/06/23 06:55 Dose: 1 each Docusate Sodium (Docusate Sodium 100 Mg Capsule) 100 mg PO BID [facility] Last Admin: 02/06/23 09:02 Dose: 100 mg Hydromorphone HCl (Hydromorphone 1 Mg/Ml Syringe) 0.5 - 2 mg IV Q2HP PRN; Protocol PRN Reason: Per Pain Protocol Sodium Chloride (Sodium Chloride 0.45%) 1,000 mls @ 100 mls/hr IV .Q10H [facility] Last Infusion: 02/06/23 01:39 Dose: Infused Insulin Human Lispro (Insulin Lispro 1 Unit/0.01 Ml Unit) 0 unit SQ [facility]; Protocol Last Admin: 02/06/23 08:06 Dose: 2 units Iron Carb/Multivit/Bosque/Folic Acid (Multivit,Ther Iron,Ca,Fa & Min 1 Tablet) 1 tab PO DAILY [facility] Last Admin: 02/06/23 09:03 Dose: 1 tab Lisinopril (Lisinopril 10 Mg Tablet) 10 mg PO QDAY [facility] Last Admin: 02/06/23 09:01 Dose: 10 mg Magnesium Hydroxide (Magnesium Hydroxide 30 Ml Oral.Susp) 30 ml PO BIDP PRN PRN Reason: Constipation Metformin HCl (Metformin 500 Mg Tab.Xl.24h) 500 mg PO QDAY [facility] Last Admin: 02/06/23 09:02 Dose: 500 mg Metoprolol Succinate (Metoprolol Succinate 25 Mg Tab.Xl.24h) 25 mg PO QDAY [facility] Last Admin: 02/06/23 09:02 Dose: 25 mg Ondansetron HCl (Ondansetron 4 Mg/2 Ml Vial) 4 mg IV Q4HP PRN; Protocol PRN Reason: Nausea And Vomiting Polyethylene Glycol (Polyethylene Glycol 3350 17 Gm Packet) 17 gm PO DAILYP PRN PRN Reason: Constipation Potassium Chloride (Potassium Chloride 10 Meq Tablet) 10 meq PO QAMCC [facility] Last Admin: 02/06/23 07:14 Dose: 10 meq Rivaroxaban (Rivaroxaban 20 Mg Tablet) 20 mg PO QDAY [facility] Senna (Sennosides 1 Tablet) 2 tab PO HS [facility] Last Admin: 02/05/23 21:06 Dose: 2 tab Sertraline HCl (Sertraline 50 Mg Tablet) 50 mg PO QDAY [facility] Last Admin: 02/06/23 09:03 Dose: 50 mg Simvastatin (Simvastatin 20 Mg Tablet) 20 mg PO QPM [facility] Last Admin: 02/05/23 21:08 Dose: 20 mg Sodium Biphosphate/Sodium Phosphate (Fleets Adult Enema) 1 dose OH Q3-4DAYS PRN PRN Reason: Constipation Sodium Chloride (0.9 % Sodium Chloride 10 Ml Syringe) 10 ml IV Q8 [facility] Last Admin: 02/06/23 04:15 Dose: 10 ml Sotalol HCl (Sotalol 80 Mg Tablet) 120 mg PO BID [facility] Last Admin: 02/06/23 09:02 Dose: 120 mg Temazepam (Temazepam 15 Mg Capsule) 15 mg PO HSP PRN PRN Reason: Insomnia Throat Lozenges (Benzocaine/Menthol 1 Lozenge) 1 lozenge PO PRN PRN PRN Reason: Sore Throat Torsemide (Torsemide 20 Mg Tablet) 20 mg PO QDAY [facility] Last Admin: 02/06/23 09:02 Dose: 20 mg Trazodone HCl (Trazodone Hcl 50 Mg Tablet) 25 mg PO QHS [facility] Last Admin: 02/05/23 21:07 Dose: 25 mg A/P Assessment and plan (1) H/O total hip arthroplasty: Status: Acute Sepsis Sepsis Identified: No Narrative Plan of Treatment: dc home Time Spent With Patient Time: Total time spent is greater than 50% in coordination of care (as documented) at patient's floor/unit and/or counseling patient: Initial: Total time with patient: Less than 40 minutes Subsequent: Total time with patient: Less than 25 minutes Critical Care Time: No
== END 2023-02-06 12:30 | disposition home or self-care (01) | DRG 468 ==
LOC: MEDSUR 08:24
PROVIDERS: ADMIT Orthopaedic Surgery; ATTEND Orthopaedic Surgery